=== PATIENT | female | born 1980 | race Caucasian/White ===

== ENCOUNTER 2018-06-06 12:33 | Emergency (ER) | payer OTHER ==
[~2018-06-06] VITALS: Ht 175.3 cm; Wt 90.7 kg
--- NOTE | 2018-06-06 13:03 | ED.ADGEN ---
Past History Past Medical History: Other Past Surgical History: Cholecystectomy, Tubal ligation, Other Alcohol Use: None Drug Use: None Adult General Chief Complaint Chief Complaint Left low back pain radiating down left leg HPI HPI The patient has a history of lumbar disc herniation. Her last episode of severe back pain was 10 years ago. Two days ago on Wednesday, she cleaned baseboards in her house and moved a lot of furniture. She had onset of back pain Wednesday evening which got worse to the point where she had difficulty moving. She denies any incontinence, weakness or numbness. She has some pain going to her left leg. She denies any trauma. Review of Systems Review of Systems Constitutional: Denies fever or chills Eyes: Denies change in visual acuity, redness, or eye pain HENT: Denies nasal congestion or sore throat Respiratory: Denies cough or shortness of breath Cardiovascular: Denies chest pain or palpitations GI: Denies abdominal pain, nausea, vomiting, bloody stools or diarrhea : Denies dysuria or hematuria Musculoskeletal: With left low back pain radiating to left leg Integument: Denies rash or skin lesions Neurologic: Denies headache, focal weakness or sensory changes Endocrine: Denies polyuria or polydipsia All other systems were reviewed and found to be within normal limits, except as documented in this note. Current Medications Current Medications Current Medications Medications (Trade) Dose Ordered Sig/Aline Start Time Stop Time Status Last Admin Dose Admin Acetaminophen/ Hydrocodone Bitart (Lortab 10/325) 1 tab 1X ONCE 06/06/18 13:15 06/06/18 13:16 DC 06/06/18 13:17 1 TAB Dexamethasone (Decadron) 10 mg 1X ONCE 06/06/18 13:15 06/06/18 13:16 DC 06/06/18 13:17 10 MG Diazepam (Valium) 10 mg 1X ONCE 06/06/18 14:30 06/06/18 14:31 DC 06/06/18 14:18 10 MG Ibuprofen (Motrin) 800 mg 1X STAT 06/06/18 13:09 06/06/18 13:10 DC 06/06/18 13:17 800 MG Allergies Allergies Allergies Coded Allergies Type Severity Reaction Last Updated Verified No Known Drug Allergies 06/06/18 No Physical Exam Physical Exam Constitutional: Well developed, well nourished, no acute distress, non-toxic appearance. HENT: Normocephalic, atraumatic, bilateral external ears normal, oropharynx moist, no oral exudates, nose normal. Eyes: PERRLA, EOMI, conjunctiva normal, no discharge. Neck: Normal range of motion, no tenderness, supple, no stridor. Cardiovascular:Heart rate regular rhythm, no murmur Lungs & Thorax: Bilateral breath sounds clear to auscultation Abdomen: Bowel sounds normal, soft, no tenderness, no masses, no pulsatile masses. Skin: Warm, dry, no erythema, no rash. Back: With left lower para lumbar tenderness, no CVA tenderness. With positive left SLR Extremities: No tenderness, no cyanosis, no clubbing, ROM intact, no edema. Neurologic: Alert and oriented X 3, normal motor function, normal sensory function, no focal deficits noted. Distal sensation intact to light touch and position sense. Psychologic: Affect normal, judgement normal, mood normal. Current Patient Data Vital Signs Vital Signs Date Time Temp Pulse Resp B/P (MAP) Pulse Ox O2 Delivery O2 Flow Rate FiO2 06/06/18 15:10 85 16 128/82 (97) 99 06/06/18 14:10 Room Air 06/06/18 12:45 98.2 EKG EKG [] Radiology/Procedures Radiology/Procedures [] Course & Med Decision Making Course & Med Decision Making Patient presents with left low back pain with left sciatica DDx-lumbar strain, left sciatica, lumbar disc herniation Patient was stable emergency department improved after Decadron and Motrin and [place]. Patient was given Valium with more improvement. 14:50 Patient is able to ambulate. Follow-up with [facility] for further evaluation Final Impression Final Impression Clinical Impression Left low sherri pain with sciatica John Disclaimer John Disclaimer This electronic medical record was generated, in whole or in part, using a voice recognition dictation system. Departure Departure: Impression: Primary Impression: Left-sided low back pain with sciatica Disposition: HOME, SELF-CARE Condition: STABLE Referrals: JOHNNA MARROQUIN MD Follow-up tomorrow for further evaluation Patient Instructions: Sciatica, [id number] Additional Instructions: Follow-up with your primary doctor at [facility] for further evaluation tomorrow If you develop worse pain, weakness, numbness, incontinence return to the emergency department immediately Scripts Hydrocodone Bit/Acetaminophen (NORCO 5-325 TABLET) 1 Each Tablet 1 TAB PO PRN Q6HRS PRN for PAIN for 3 Days, #12 TAB 0 Refills Prov: GILMA TSE MD 06/06/18 Diazepam (VALIUM) 5 Mg Tablet 5 MG PO TID for 3 Days, #9 TAB Prov: GILMA TSE MD 06/06/18 Ibuprofen (IBUPROFEN) 800 Mg Tablet 1 TAB PO TID, #15 TAB Prov: GILMA TSE MD 06/06/18 Methylprednisolone (MEDROL) 4 Mg Tab.ds.pk 1 PKG PO UD, #1 PKG Prov: GILMA TSE MD 06/06/18 GILMA TSE MD Jun 06, 2018 13:03
[2018-06-06] MEDS ORDERED: IBUPROFEN 800 MG TABLET. PO STA (13:09)
[2018-06-06] MEDS ORDERED: HYDROcodone/APAP 10/325 1 TAB TABLET PO ONE (13:15)
[2018-06-06] MEDS ORDERED: DEXAMETHASONE 4 MG TABLET PO ONE (13:15)
[2018-06-06] MEDS ORDERED: diazePAM 5 MG TABLET PO ONE (14:30)
[2018-06-06] MEDS ORDERED: IBUP800T19 PO (14:57)
[2018-06-06] MEDS ORDERED: METH4TAB2 PO (14:57)
[2018-06-06] MEDS ORDERED: DIAZ5TAB PO (14:57)
[2018-06-06] MEDS ORDERED: HYDR-971 PO (14:57)
[2018-06-06 15:10] VITALS: BP 128/82
== END 2018-06-06 15:10 | disposition home or self-care (01) ==
LOC: ER 12:33
DX: M54.42 Lumbago with sciatica, left side (principal); M51.26 Other intervertebral disc displacement, lumbar region; Z90.49 Acquired absence of other specified parts of digestive tract; Z98.51 Tubal ligation status
CPT/HCPCS: 99284; J8540